=== PATIENT | female | born 1955 | race Caucasian/White ===

== ENCOUNTER 2022-06-19 11:47 | Emergency (ER) | payer MEDICARE ==
[~2022-06-19] VITALS: Ht 170.2 cm; Wt 88.5 kg
[~2022-06-19 11:47] MED LIST: CIPR500 PO; PHENA200 PO; RXPHEN200 PO
[2022-06-19 12:10] LABS: BASOPHILS ABSOLUTE AUTO 0.08 K/mm3 (0.00-0.23); BASOPHILS PERCENT AUTO 1 % (0-2); EOSINOPHILS ABSOLUTE AUTO 0.05 K/mm3 (0.00-0.68); EOSINOPHILS PERCENT AUTO 1 % (0-6); Hematocrit 44.8 % (33.0-51.0); Hemoglobin 14.8 g/dL (11.5-16.0); IMMATURE GRAN ABSOLUTE AUTO 0.02 K/mm3 (0.00-0.10); IMMATURE GRAN PERCENT AUTO 0 % (0-1); LYMPHOCYTES ABSOLUTE AUTO 2.16 K/mm3 (0.84-5.20); LYMPHOCYTES PERCENT AUTO 22 % (21-46); MONOCYTES ABSOLUTE AUTO 0.68 K/mm3 (0.16-1.47); MONOCYTES PERCENT AUTO 7 % (4-13); Mean Corpuscular HGB 29.8 pg (26.0-34.0); Mean Corpuscular Volume 90 fL (80-100); Mean Platelet Volume 10.3 fL (9.1-12.4); NEUTROPHILS ABSOLUTE AUTO 6.95 K/mm3 (1.96-9.15); NEUTROPHILS PERCENT AUTO 70 % (41-73); Platelet Count 260 K/mm3 (150-400); RDW Coefficient Variation 13.1 % (11.7-14.2); RDW Standard Deviation 43.2 fL (35.1-46.3); Red Blood Cell Count 4.96 M/mm3 (3.80-5.20); White Blood Cell Count 9.94 K/mm3 (4.00-11.30)
[2022-06-19 12:26] LABS: Albumin, Blood 4.2 g/dL (3.4-5.0); Bilirubin, Total 0.6 mg/dL (0.1-1.0); Bun/Creatinine Ratio 25.6 (12.0-20.0); Calcium, Blood 9.4 mg/dL (8.5-10.1); Creatinine, Blood 0.66 mg/dL (0.40-1.00); Globulin, Blood 4.1 g/dL (2.2-4.0); Potassium, Blood 3.8 mmol/L (3.5-5.5); Total Protein, Blood 8.3 g/dL (6.4-8.2)
[2022-06-19 12:37] LABS: Magnesium, Blood 2.4 mg/dL (1.6-2.4); Thyroid Stimulating Hormone 1.5 uIU/mL (0.360-4.800)
[2022-06-19] MEDS ORDERED: FLUT1DIS5 INH (12:43)
[2022-06-19] MEDS ORDERED: ALBU90OI (12:43)
[2022-06-19] MEDS ORDERED: Aspir 8181 MG PO (12:44)
[2022-06-19] MEDS ORDERED: Lopressor 25 mg25 MG PO (14:34)
== END 2022-06-19 14:44 | disposition home or self-care (01) ==
LOC: ER 11:47
PROVIDERS: Emergency Medicine; Physician Assistant
DX: I47.1 Supraventricular tachycardia (principal); Z87.891 Personal history of nicotine dependence; Z79.82 Long term (current) use of aspirin; Z79.899 Other long term (current) drug therapy
CPT/HCPCS: 36415; 80053; 83735; 84443; 84484; 85025; 85379; 93005; 93010; 93242; A9270; J7030

== ENCOUNTER 2023-12-02 22:53 | Emergency (ER) | payer MEDICARE ==
[~2023-12-02] VITALS: Ht 170.2 cm; Wt 85.3 kg
[~2023-12-02 22:53] MED LIST changes: +ALBU90OI; +Aspir 8181 MG PO; +FLUT1DIS5 INH; +Lopressor 25 mg25 MG PO
[2023-12-02 23:32] LABS: BASOPHILS ABSOLUTE AUTO 0.05 K/mm3 (0.00-0.23); BASOPHILS PERCENT AUTO 1 % (0-2); EOSINOPHILS ABSOLUTE AUTO 0.35 K/mm3 (0.00-0.68); EOSINOPHILS PERCENT AUTO 4 % (0-6); Hematocrit 42.1 % (33.0-51.0); Hemoglobin 13.7 g/dL (11.5-16.0); IMMATURE GRAN ABSOLUTE AUTO 0.02 K/mm3 (0.00-0.10); IMMATURE GRAN PERCENT AUTO 0 % (0-1); LYMPHOCYTES ABSOLUTE AUTO 3.44 K/mm3 (0.84-5.20); LYMPHOCYTES PERCENT AUTO 35 % (21-46); MONOCYTES ABSOLUTE AUTO 0.72 K/mm3 (0.16-1.47); MONOCYTES PERCENT AUTO 7 % (4-13); Mean Corpuscular HGB 30.1 pg (26.0-34.0); Mean Corpuscular HGB Conc 32.5 g/dL (31.5-36.5); Mean Corpuscular Volume 93 fL (80-100); Mean Platelet Volume 10.4 fL (9.1-12.4); NEUTROPHILS ABSOLUTE AUTO 5.25 K/mm3 (1.96-9.15); NEUTROPHILS PERCENT AUTO 53 % (41-73); Platelet Count 217 K/mm3 (150-400); RDW Coefficient Variation 12.7 % (11.7-14.2); RDW Standard Deviation 43.4 fL (35.1-46.3); Red Blood Cell Count 4.55 M/mm3 (3.80-5.20); White Blood Cell Count 9.83 K/mm3 (4.00-11.30)
[2023-12-02 23:55] LABS: Albumin, Blood 3.9 g/dL (3.4-5.0); Albumin/Globulin Ratio 0.9 (0.8-1.8); Bilirubin, Total 0.3 mg/dL (0.1-1.0); Bun/Creatinine Ratio 44.3 (12.0-20.0); Calcium, Blood 9.4 mg/dL (8.5-10.1); Creatinine, Blood 0.65 mg/dL (0.40-1.00); Globulin, Blood 4.4 g/dL (2.2-4.0); Potassium, Blood 4.5 mmol/L (3.5-5.5); Total Protein, Blood 8.3 g/dL (6.4-8.2)
[2023-12-03 06:15] VITALS: BP 149/80
== END 2023-12-03 06:30 | disposition home or self-care (01) ==
LOC: ER 22:53
PROVIDERS: Student in an Organized Health Care Education/Training Program
DX: R00.2 Palpitations (principal); R79.1 Abnormal coagulation profile; G81.90 Hemiplegia, unspecified affecting unspecified side; Z79.899 Other long term (current) drug therapy; Z79.82 Long term (current) use of aspirin; J44.9 Chronic obstructive pulmonary disease, unspecified
CPT/HCPCS: 71046; 71260; 80053; 84484; 85025; 85379; 93005; 93010; 99285-25; Q9967